=== PATIENT | male | born 1970 | race Caucasian/White ===

== ENCOUNTER 2019-08-21 05:56 | Inpatient (IN) ==
--- NOTE | 2019-08-02 13:07 | PAT Medication Instructions ---
Medication Instructions Date of Service August 02, 2019 Home Medications acetaminophen [Tylenol Extra Strength] 500 mg PO TID dapagliflozin [Farxiga] 10 mg PO QAM dulaglutide [Trulicity] 1.5 mg SUBCUT WK lisinopril 20 mg PO QAM metformin 1,000 mg PO BID multivitamin 1 tab PO QAM simvastatin 40 mg PO PM Continue as directed dulaglutide [Trulicity] 1.5 mg SUBCUT WK DO NOT take the morning of surgery dapagliflozin [Farxiga] 10 mg PO QAM lisinopril 20 mg PO QAM metformin 1,000 mg PO BID multivitamin 1 tab PO QAM Take morning of surgery With a small sip of water, OTHERWISE NOTHING TO EAT OR DRINK AFTER MIDNIGHT: acetaminophen [Tylenol Extra Strength] 500 mg PO TID (okay to take up to 4 hours prior to surgery if needed) Take evening before surgery acetaminophen [Tylenol Extra Strength] 500 mg PO TID metformin 1,000 mg PO BID simvastatin 40 mg PO PM Other Notes If you have any questions please call us at [phone] or [phone] or [phone] or [phone]
--- NOTE | 2019-08-03 10:38 | Anesthesiology Consultation ---
Date of Service August 03, 2019 Assessment & Plan (1) Encounter for pre-operative examination: - Check BSG AM DOS Chart Review Chart Review: Acceptable Risk for Surgery and Patient seen in Pre Admission Testing Teaching & Discussion Pre-Anesthesia Teaching/Discussion Notes: Instructed NPO after midnight before surgery,except medications with 15 cc of water. Medication instructions provided according to the PAT guidelines. History Surgery Operation Date: 08/21/19 07:45 Proposed Procedures p L5-S1 Transforaminal Lumbar Interbody Fusion with Spinal Cord Monitoring - Gilmar Shaw DO Height/Weight Height: 5 ft 8.75 in Weight: 93.3 kg Allergies Allergy/AdvReac Type Severity Reaction Status Date / Time No Known Allergies Allergy Verified 07/28/19 11:21 Medications Home Medications Medication Instructions Recorded Confirmed Last Taken acetaminophen [Tylenol Extra 500 mg PO TID 07/28/19 07/28/19 Unknown Strength] dapagliflozin [Farxiga] 10 mg PO QAM 07/28/19 07/28/19 Unknown dulaglutide [Trulicity] 1.5 mg SUBCUT WK 07/28/19 07/28/19 Unknown lisinopril 20 mg PO QAM 07/28/19 07/28/19 Unknown metformin 1,000 mg PO BID 07/28/19 07/28/19 Unknown multivitamin 1 tab PO QAM 07/28/19 07/28/19 Unknown simvastatin 40 mg PO PM 07/28/19 07/28/19 Unknown Past Medical History Medical History Diabetes mellitus, type 2 NIDDM (oral + injectable) History of GI bleed post-op bleeding after previous polypectomy/no transfusion needed Osteoarthritis Exercise / Class Metabolic Activity II 4-5 Yardwork/Stairs/Walk up hill Past Family History Family History Brother Family history of diabetes mellitus Sister Family history of diabetes mellitus Father Family history of diabetes mellitus Other No family history of adverse response to anesthesia Past Surgical History Surgical History History of arthroscopy of right knee History of cholecystectomy History of colonoscopy History of elbow surgery History of tooth extraction Past Anesthesia History No Hx of Anesthesia Complications and No Family Hx of Anesthesia Complications History of PONV No Hx of PONV and No Hx of Motion Sickness Social History Smoking Status: Never smoker Do You Dip or Chew Tobacco: No Hx Alcohol Use: Yes alcohol intake frequency: holidays/special occasions only Hx Substance Use: No substance use type: does not use Review of Systems Rare reflux. Patient denies chest pain, shortness of breath, dyspnea on exertion, cough, wheezing, palpitations. Physical Exam Vital Signs VITALS BP 114/78 P 77 TEMP 98.6 SP02 98%RA RESP 18 PHYSICAL Full neck and c-spine range of motion. Full TMJ range of motion. TMD 3.5 finger breaths Mallampati Score 2 Dentition: missing molars Lungs: clear throughout to auscultation Cardiac: regular rate and rhythm, no murmurs noted Spine: normal Carotid arteries: negative bruit Extremities: no edema Testing Laboratory Results 08/03/19 11:00 08/03/19 11:00 PT 10.3 Seconds (9.0-12.0) 08/03/19 11:00 INR 1.0 (0.9-1.1) 08/03/19 11:00 APTT 25.1 Seconds (21.0-31.0) 08/03/19 11:00 Hemoglobin A1c 6.1 % (4.5-5.6) H 08/03/19 11:00 Urine Color Yellow 08/03/19 Unknown Urine Appearance Clear (Clear) 08/03/19 Unknown Urine pH 5.5 (4.5-7.5) 08/03/19 Unknown Ur Specific [place] 1.026 (1.000-1.030) 08/03/19 Unknown Urine Protein Negative (Negative) 08/03/19 Unknown Urine Glucose (UA) 3+ (Negative) H 08/03/19 Unknown Urine Ketones 1+ (Negative) H 08/03/19 Unknown Urine Nitrite Negative (Negative) 08/03/19 Unknown Ur Leukocyte Esterase Negative (Negative) 08/03/19 Unknown Blood Type A Negative 08/03/19 11:00 Antibody Screen NEGATIVE 08/03/19 11:00 Electrocardiogram Date: 08/03/19 NSR at 70bpm. Rightward axis. *unconfirmed report* Chest X-Ray Date: 08/03/19 Findings: + NAD
--- NOTE | 2019-08-03 11:17 | XRay Report ---
XR chest Pre-admission PA/Lat CLINICAL HISTORY: pat preoperative evaluation COMPARISON STUDY: No previous studies for comparison. FINDINGS: The bones soft tissues and hemidiaphragms are normal. The cardiomediastinal silhouette is n ormal. The lungs are clear. The pulmonary vasculature is normal. IMPRESSION: Negative chest. ACT 112: Negative or not required by law. The above report was generated using voice recognition software. It may contain grammatical, syntax or spelling errors. Electronically signed by: Abel Raman M.D. 08/03/2019 11:16 AM
[2019-08-03 13:14] LABS: Basophils # (auto) 0.01 K/uL (0-0.2); Basophils % (auto) 0.2 %; Eosinophils % (auto) 2.2 %; Hematocrit (blood only) 46.1 % (42-52); Hemoglobin 16.6 g/dL (14.0-18.0); Immature Granulocytes # (auto) 0.02 K/uL (0.00-0.02); Immature Granulocytes % (auto) 0.4 %; Lymphocytes # (auto) 1.19 K/uL (1.2-3.4); Lymphocytes % (auto) 25.8 %; Mean Corpuscular Volume 80.6 fL (80-100); Mean Platelet Volume 10.5 fL (7.4-10.4); Monocytes % (auto) 10.8 %; Neutrophils % (auto) 60.6 %; Platelet Count 150 K/uL (130-400); Red Blood Count 5.72 M/uL (4.7-6.1); White Blood Count 4.62 K/uL (4.8-10.8)
[2019-08-03 13:16] LABS: Estimated Average Glucose 128 mg/dl; Hemoglobin A1C 6.1 % (4.5-5.6)
[2019-08-03 13:16] LABS: Appearance Urine Clear (Clear); Bilirubin Urine Negative (Negative); Blood Urine Negative (Negative); Color Urine Yellow; Glucose Urine UA 3+ (Negative); Ketones Urine 1+ (Negative); Leukocyte Esterase Urine Negative (Negative); Nitrite Urine Negative (Negative); Protein Urine Negative (Negative); Specific Gravity Urine 1.026 (1.000-1.030); Urobilinogen Urine Negative (Negative); pH Urine 5.5 (4.5-7.5)
[2019-08-03 13:24] LABS: BUN Creatinine Ratio 22.4 (10-20); Calcium 9.7 mg/dl (8.5-10.1); Creatinine Clr Calc Pharmacy 111.5 ml/min; Est GFR (African American) 115.6; Est GFR (Non-African American) 99.7
[2019-08-03 13:33] LABS: Partial Thromboplastin Ratio 0.9; Partial Thromboplastin Time 25.1 Seconds (21.0-31.0); Prothrombin Time 10.3 Seconds (9.0-12.0)
--- NOTE | 2019-08-04 05:54 | Electrocardiogram Report ---
Test Reason : Blood Pressure : / mmHG Vent. Rate : 070 BPM Atrial Rate : 070 BPM P-R Int : 182 ms QRS Dur : 084 ms QT Int : 396 ms P-R-T Axes : 069 102 056 degrees QTc Int : 427 ms Normal sinus rhythm Rightward axis Borderline ECG No previous ECGs available Confirmed by Enrico Nuñez ([id number]) on 08/04/2019 5:53:58 AM Referred By: Gilmar Shaw Confirmed By:Enrico Nuñez
[2019-08-21] MEDS ORDERED: ACETAMINOPHEN 500 MG TAB PO SCH (06:00)
[2019-08-21] MEDS ORDERED: CEFAZOLIN 2000MG 2,000 MG/15 ML SYR IV SCH (06:00)
[2019-08-21] MEDS ORDERED: GABAPENTIN 900 MG DOSE PO SCH (06:00)
[2019-08-21] MEDS ORDERED: CeleBREX 200 MG CAP PO SCH (06:00)
[2019-08-21] MEDS ORDERED: LR 15ML/HR IV SCH (06:00)
[2019-08-21] MEDS ORDERED: MIDAZOLAM HCL 1 MG/ML 2ML VIAL ONE (06:48)
[2019-08-21] MEDS ORDERED: fentaNYL citrate 100 MCG/2 ML VIAL ONE (06:49)
[2019-08-21] MEDS ORDERED: HYDROmorphone INJ 2 MG/ML SYR/VIAL IV PRN (07:12)
[2019-08-21] MEDS ORDERED: PROMETHAZINE HCL 6.25 MG in SODIUM CHLORIDE 0.9% 50 ML IV PRN (07:12)
[2019-08-21] MEDS ORDERED: ePHEDrine sulfate 50 MG/ML AMP IV PRN (07:12)
[2019-08-21] MEDS ORDERED: ATROPINE SULFATE 0.1 MG/ML 10ML SYR IV PRN (07:12)
[2019-08-21] MEDS ORDERED: fentaNYL citrate 100 MCG/2 ML VIAL IV PRN (07:12)
[2019-08-21] MEDS ORDERED: ONDANSETRON INJ 2 MG/ML 2 ML VIAL IV PRN ×2 (07:12→10:59)
[2019-08-21] MEDS ORDERED: BACITRACIN INJ 50,000 UNIT VIAL ONE (07:19)
[2019-08-21] MEDS ORDERED: BUPIVACAINE/EPINEPHRINE 0.5% MPF 1:200,000 10 ML VIAL ONE (07:20)
--- NOTE | 2019-08-21 07:33 | History & Physical Bridge Note ---
Date of Service August 21, 2019 History & Physical Bridge Note I have examined the patient, reviewed the History & Physical and in the interval since the performance of the History & Physical I have noted the following changes of clinical significance: no changes noted
--- NOTE | 2019-08-21 07:34 | History & Physical Report ---
Date of Service August 21, 2019 Assessment & Plan (1) Spinal stenosis of lumbar region with radiculopathy: L5-S1 transforaminal lumbar interbody fusion Present on Admission?: Yes History of Present Illness Chief Complaint: Back and leg pain Primary Care Provider: Jonel Cruz This is a 48-year-old male who presents with chronic persistent back and leg pain after failing extensive course of nonoperative care is here for surgical intervention. Allergies Allergy/AdvReac Type Severity Reaction Status Date / Time No Known Allergies Allergy Verified 08/21/19 06:49 Home Medications Home Medications Medication Instructions Recorded Confirmed Type acetaminophen [Tylenol Extra 500 mg PO TID 07/28/19 08/21/19 History Strength] dapagliflozin [Farxiga] 10 mg PO QAM 07/28/19 08/21/19 History dulaglutide [Trulicity] 1.5 mg SUBCUT WK 07/28/19 08/21/19 History lisinopril 20 mg PO QAM 07/28/19 08/21/19 History metformin 1,000 mg PO BID 07/28/19 08/21/19 History multivitamin 1 tab PO QAM 07/28/19 08/21/19 History simvastatin 40 mg PO PM 07/28/19 08/21/19 History Past Med/Surg History Medical History Diabetes mellitus, type 2 NIDDM (oral + injectable) History of GI bleed post-op bleeding after previous polypectomy/no transfusion needed Osteoarthritis Surgical History History of arthroscopy of right knee History of cholecystectomy History of colonoscopy History of elbow surgery History of tooth extraction Family History Brother Family history of diabetes mellitus Sister Family history of diabetes mellitus Father Family history of diabetes mellitus Other No family history of adverse response to anesthesia Social History Preferred Language: Scottish Communication Ability: Effective Trial Examiner Required: No Beliefs That Will Affect Care: None Current Living Situation: Spouse Other Information That Helps Us Care for You: No Feels Safe at Home: Yes Safety Concerns: Feels Safe At This Time Smoking Status: Never smoker Do You Dip or Chew Tobacco: No ; Second Hand Exposure: No ; Hx Alcohol Use: Yes Hx Substance Use: No Physical Exam Physical Exam: Patient is alert and oriented neurologically intact. Results & Data Vital Signs (Past 12 Hours) Vital Signs Temp Pulse Resp BP Pulse Ox 08/21/19 06:30 36.4 C L 69 20 140/95 97
[2019-08-21] MEDS ORDERED: HYDROmorphone INJ 2 MG/ML SYR/VIAL ONE (08:02)
[2019-08-21] MEDS ORDERED: LIDOCAINE HCL 2% 2 ML VIAL/AMP(20MG/ML) INFIL ONE (08:21)
[2019-08-21] MEDS ORDERED: GLYCOPYRROLATE 0.2 MG/ML VIAL ONE (08:21)
[2019-08-21] MEDS ORDERED: ROCURONIUM BROMIDE 10 MG/ML 5 ML VIAL ONE (08:21)
[2019-08-21] MEDS ORDERED: PROPOFOL IV EMULSION 10 MG/ML 20 ML VIAL IV ONE (08:21)
[2019-08-21] MEDS ORDERED: NEOSTIGMINE METHYLSULFATE 1 MG/ML 10ML VIAL ONE (08:21)
[2019-08-21] MEDS ORDERED: PHENYLEPHRINE 100MCG/ML 5ML SYR ONE (08:21)
[2019-08-21] MEDS ORDERED: DEXAMETHASONE SOD INJ 4 MG/ML VIAL ONE (08:21)
[2019-08-21] MEDS ORDERED: ONDANSETRON INJ 2 MG/ML 2 ML VIAL ONE (08:21)
[2019-08-21] MEDS ORDERED: LARYING-O-JET KIT (LTA) ONE (08:21)
--- NOTE | 2019-08-21 09:50 | Operative Report ---
Post Operative Report Pre & Post Diagnosis Operation Date: 08/21/19 07:45 Pre-Op Diagnosis: LUMBAR SPINAL STENOSIS W/NEUROGENIC CLAUDICATION Post-Op Diagnosis: LUMBAR SPINAL STENOSIS W/NEUROGENIC CLAUDICATION I identified the patient and participated in the time-out.: Yes Procedure Operation Date: 08/21/19 07:45 Actual Procedures #1 lumbar decompression with bilateral medial facetectomies foraminotomies L5- S1. #2 posterior spinal fusion L5-S1. #3 placement posterior instrumentation L5-S1. #4 interbody fusion L5-S1. #5 placement of titanium cage 14 x 26 mm L5- S1 per #6 placement of locally harvested morselized autograft posterior gutters per #7 placement infuse collagen sponge master graft in the posterior lateral gutters and ostial amp and interbody space. Surgeon Gilmar Shaw, Cad Designer Drafter None Estimated Blood Loss 350 Findings Consistent with Post-Op Diagnosis Specimens None Indications Patient is a 48-year-old male that presents with back and chronic leg pain after failing extensive course of nonoperative care he is here for surgical invention. Description of Procedure Patient was met with identified informed consent obtained. Patient was then taken to the operative suite underwent an patient placed in a prone position the Kameron table on top of the Rc frame. All bony prominences well-padded eyes inspected to ensure no external pressure placed upon the. This point the lumbar spine was prepped and draped in normal sterile fashion. Sharp dissection with the assistance of Bovie cautery performed down to and exposing the lamina and transverse processes of L5 and sacral ala bilaterally. From caudal to cephalad fashion complete laminectomy of L5 including bilateral medial facetectomies foraminotomies performed addressing severe spinal stenosis and notable marked facet hypertrophy on the left. After complete decompression pedicle screw was placed in L5 and S1 levels bilaterally with assistance of fluoroscopy and the proper sized barrera placed. By way of a trans-foraminal approach on the left complete discectomy was performed endplates curetted to subcortical bleeding bone and a 14 x 26 mm titanium cage filled with osteo-amp bone graft tapped in position. The rods were then compressed locked into final position bilaterally. The transverse processes of L5 and the sacral ala bur to subcortical bleeding bone. Infuse collagen sponge master graft and local autograft placed in the posterior lateral gutters. 15 round ADILENE drain inserted. The incision was then closed with 1 Vicryl in the fascia 2-0 Vicryl subcutaneously and 4 Monocryl for final skin closure. Steri-Strip sterile dressings placed. Patient will continue to PACU stable addition. Please note spinal cord monitoring was utilized that the procedure no changes noted. I attest to the content of the Intraoperative Record and any orders documented therein. Any exceptions are noted below.
--- NOTE | 2019-08-21 10:35 | Anesthesiology Progress Note ---
Date of Service August 21, 2019 Anesthesia Post Procedure Vital Signs Vital Signs: Temp Pulse Pulse Resp BP Pulse Ox 08/21/19 10:25 36.4 C L 82 16 130/64 99 08/21/19 10:15 75 16 140/60 96 08/21/19 10:05 71 16 145/86 H 99 08/21/19 09:59 36.0 C L 82 16 145/85 H 98 08/21/19 06:30 36.4 C L 69 20 140/95 97 Pain Intensity Left Leg: Pain Intensity: 3 Lower Medial Back: Pain Intensity: 4 Transfer of Care Handoff Completed per policy Notes Mental Status: alert / awake / arousable Patient Amnestic to Procedure: Yes Nausea / Vomiting: adequately controlled Pain: adequately controlled Airway Patency, RR, SpO2: stable & adequate BP & HR: stable & adequate Hydration State: stable & adequate Anesthetic Complications: no major complications apparent Notes: ~1mm abrasion noted on L upper lip, likely some minor trauma at intubation or extubation. Patient says he "doesn't even feel it"
[2019-08-21] MEDS ORDERED: LORazepam 0.5 MG TAB PO PRN (10:59)
[2019-08-21] MEDS ORDERED: DO NOT ADMINISTER FLU VACCINE PRN (10:59)
[2019-08-21] MEDS ORDERED: ACETAMINOPHEN 1,000 MG/100 ML VIAL IV PRN (10:59)
[2019-08-21] MEDS ORDERED: ONDANSETRON 4 MG OD TAB PO PRN (10:59)
[2019-08-21] MEDS ORDERED: bisacodyL 10 MG SUPP PR PRN (10:59)
[2019-08-21] MEDS ORDERED: SOD PHOSPHATE/SOD BIPHOSPHATE ENEMA 132 ML BTL PR PRN (10:59)
[2019-08-21] MEDS ORDERED: PROMETHAZINE HCL 12.5 MG in SODIUM CHLORIDE 0.9% 50 ML IV PRN (10:59)
[2019-08-21] MEDS ORDERED: NALOXONE HCL 0.4 MG/1 ML VIAL/CARP IV PRN (10:59)
[2019-08-21] MEDS ORDERED: HYDROmorphone INJ 0.5 MG/0.5 ML SYR IV PRN (10:59)
[2019-08-21] MEDS ORDERED: MAGNESIUM HYDROXIDE SUSP 30 ML UDC PO PRN (10:59)
[2019-08-21] MEDS ORDERED: HYDROmorphone INJ 1 MG/ML SYRINGE IV PRN (10:59)
[2019-08-21] MEDS ORDERED: METOCLOPRAMIDE HCL INJ 5 MG/ML 2 ML VIAL IV PRN (10:59)
[2019-08-21] MEDS ORDERED: DO NOT ADMINISTER PNEUMOCOCCAL VACCINE PRN (10:59)
[2019-08-21] MEDS ORDERED: FAMOTIDINE 20 MG TAB PO PRN (10:59)
[2019-08-21] MEDS ORDERED: ACETAMINOPHEN 500 MG TAB PO PRN (10:59)
[2019-08-21] MEDS ORDERED: ALUMINUM/MAGNESIUM SUSP 30 ML UDC PO PRN (10:59)
[2019-08-21] MEDS ORDERED: LORazepam 0.5 MG/1 ML VIAL IV PRN (10:59)
--- NOTE | 2019-08-21 11:04 | Fluoroscopy Report ---
FL lumbar spine 2-3V CLINICAL HISTORY: L5-S1 TRANSFORAMINAL LUMBAR INTERBODY COMPARISON STUDY: None FLUOROSCOPY TIME: 21 seconds. NUMBER OF FLUOROSCOPIC IMAGES: 2 FINDINGS: 2 intraoperative fluoroscopic spot images reveal postsurgical changes at L5-S1 discectomies interbody fusion with posterior pedicle screw fixation. IMPRESSION: Postsurgical changes of an L5-S1 spinal decompression and fusion. ACT 112: Negative or not required by law. Electronically signed by: Prem Mondragon M.D. 08/21/2019 11:03 AM
[2019-08-21] MEDS: SODIUM CHLORIDE 0.9% 1000ML 1,000 ML IV SCH ×2 (11:29→22:13)
[2019-08-21] MEDS: KETOROLAC 30 MG/ML VIAL IV SCH ×3 (11:29→23:27)
[2019-08-21] MEDS: CEFAZOLIN 2000MG 2,000 MG/15 ML SYR IV SCH ×2 (17:03→23:27)
[2019-08-21] MEDS: DOCUSATE SODIUM/SENNA 50/8.6MG TAB PO SCH (22:15)
[2019-08-21] MEDS: SIMVASTATIN 40 MG TAB PO SCH (22:15)
[2019-08-21] MEDS: OXYCODONE HCL IR 5 MG TAB (IMMEDIATE RELEASE) PO PRN (22:19)
[2019-08-22 05:26] LABS: Basophils # (auto) 0.01 K/uL (0-0.2); Basophils % (auto) 0.1 %; Eosinophils # (auto) 0.03 K/uL (0-0.5); Eosinophils % (auto) 0.3 %; Hematocrit (blood only) 35.7 % (42-52); Hemoglobin 12.9 g/dL (14.0-18.0); Immature Granulocytes # (auto) 0.01 K/uL (0.00-0.02); Immature Granulocytes % (auto) 0.1 %; Lymphocytes # (auto) 1.12 K/uL (1.2-3.4); Lymphocytes % (auto) 12.1 %; Mean Corpuscular Hemoglobin 28.3 pg (25-34); Mean Corpuscular Hgb Conc 36.1 g/dL (32-36); Mean Corpuscular Volume 78.3 fL (80-100); Mean Platelet Volume 10.5 fL (7.4-10.4); Monocytes # (auto) 0.73 K/uL (0.11-0.59); Monocytes % (auto) 7.9 %; Neutrophils # (auto) 7.36 K/uL (1.4-6.5); Neutrophils % (auto) 79.5 %; Platelet Count 136 K/uL (130-400); RDW Coefficient of Variation 14.5 % (11.5-14.5); RDW Standard Deviation 41.1 fL (36.4-46.3); Red Blood Count 4.56 M/uL (4.7-6.1); White Blood Count 9.26 K/uL (4.8-10.8)
[2019-08-22] MEDS: KETOROLAC 30 MG/ML VIAL IV SCH (05:31)
[2019-08-22] MEDS: POLYETHYLENE (MIRALAX) 17 GM PACK PO SCH ×4 (05:31→23:50)
[2019-08-22 05:53] LABS: BUN Creatinine Ratio 19.3 (10-20); Calcium 8.4 mg/dl (8.5-10.1); Est GFR (African American) 118.3; Est GFR (Non-African American) 102.1
--- NOTE | 2019-08-22 07:47 | Anesthesiology Progress Note ---
Date of Service August 22, 2019 Anesthesia Post Procedure Vital Signs Vital Signs: Temp Pulse Pulse Pulse Resp BP BP 08/22/19 03:30 36.6 C 88 16 117/67 08/21/19 23:35 36.6 C 65 18 119/72 08/21/19 20:19 37.0 C 71 16 115/74 08/21/19 15:13 36.6 C 82 16 119/75 08/21/19 13:40 100 H 16 124/77 08/21/19 12:41 94 H 16 147/97 H 08/21/19 11:44 86 16 151/77 H 08/21/19 11:18 83 16 132/82 08/21/19 10:45 36.9 C 81 16 147/89 H 08/21/19 10:25 36.4 C L 82 16 130/64 08/21/19 10:15 75 16 140/60 08/21/19 10:05 71 16 145/86 H 08/21/19 09:59 36.0 C L 82 16 145/85 H Pulse Ox 08/22/19 03:30 97 08/21/19 23:35 97 08/21/19 20:19 98 08/21/19 15:13 97 08/21/19 13:40 98 08/21/19 12:41 96 08/21/19 11:44 95 08/21/19 11:18 96 08/21/19 10:45 96 08/21/19 10:25 99 08/21/19 10:15 96 08/21/19 10:05 99 08/21/19 09:59 98 Pain Intensity Left Leg: Pain Intensity: 3 Lower Medial Back: Pain Intensity: 5 Notes Mental Status: alert / awake / arousable and participated in evaluation Patient Amnestic to Procedure: Yes Nausea / Vomiting: adequately controlled Pain: adequately controlled Airway Patency, RR, SpO2: stable & adequate BP & HR: stable & adequate Hydration State: stable & adequate Anesthetic Complications: no major complications apparent and Pt Satisfied with anesthetic care
[2019-08-22] MEDS: MULTIVITAMIN TAB PO SCH (08:26)
[2019-08-22] MEDS: lisinopriL 20 MG TAB PO SCH (08:26)
[2019-08-22] MEDS: FARXIGA 10 MG PO SCH (08:27)
[2019-08-22] MEDS ORDERED: NON-FORMULARY MEDICATION (Dapagliflozin [Farxiga] 10 MG) PO SCH (09:00)
[2019-08-22] MEDS: TRAMADOL HCL 50 MG TABLET PO PRN ×2 (10:50→18:42)
--- NOTE | 2019-08-22 16:14 | Orthopedic Progress Note ---
Date of Service August 22, 2019 Assessment & Plan (1) Spinal stenosis of lumbar region with radiculopathy: This time we will continue physical therapy monitor ADILENE output hopefully discharge home in the next few days. Present on Admission?: Yes Admission and Anticipated Discharge Date Admission Date: August 21, 2019 Subjective Back pain controlled leg symptoms improved. Physical Exam Physical Exam: Patient is good strength testing appears comfortable. Results & Data ([facility]) Vital Signs (Past 12 Hours) Vital Signs Temp Pulse Resp BP BP Pulse Ox 08/22/19 15:00 37.4 C 74 16 115/70 99 08/22/19 11:14 97 08/22/19 08:25 123/78 08/22/19 07:55 36.7 C 71 16 117/77 99
[2019-08-22] MEDS: DOCUSATE SODIUM/SENNA 50/8.6MG TAB PO SCH (20:31)
[2019-08-22] MEDS: SIMVASTATIN 40 MG TAB PO SCH (20:31)
[2019-08-22] MEDS: OXYCODONE HCL IR 5 MG TAB (IMMEDIATE RELEASE) PO PRN (22:28)
[2019-08-23] MEDS: POLYETHYLENE (MIRALAX) 17 GM PACK PO SCH ×2 (05:27→12:44)
[2019-08-23] MEDS: FARXIGA 10 MG PO SCH (08:20)
[2019-08-23] MEDS: TRAMADOL HCL 50 MG TABLET PO PRN (08:20)
[2019-08-23] MEDS: MULTIVITAMIN TAB PO SCH (08:20)
[2019-08-23] MEDS: lisinopriL 20 MG TAB PO SCH (08:21)
--- NOTE | 2019-08-23 13:39 | Discharge Summary ---
Date of Service August 23, 2019 Admission HPI Per Admitting Provider This is a 48-year-old male who presents with chronic persistent back and leg pain after failing extensive course of nonoperative care is here for surgical intervention. Principal Diagnosis Lumbar spinal stenosis with neurogenic claudication Discharge Data Allergies Allergy/AdvReac Type Severity Reaction Status Date / Time No Known Allergies Allergy Verified 08/21/19 06:49 Consultations 08/21/19 10:59 Consult Case Management - Discharge Planning Routine Procedures Performed Operation Date: 08/21/19 07:45 Actual Procedures p L5-S1 Transforaminal Lumbar Interbody Fusion, Application of Bone Infuse and Allograft, With Spinal Cord Monitoring - Gilmar Shaw DO Ordered Studies 08/21/19 07:45 FL fluoroscopy <1hr Routine FL lumbar spine 2-3V Routine Hospital Course (1) Spinal stenosis of lumbar region with radiculopathy: Patient went lumbar decompression fusion tolerated well second orthopedic for postoperative. Postop day 1 he was up and ambulating. Leg pain improved. He progressed to postop day #2. ADILENE drain decreasing probably. Excellent strength testing. Subsequent discharge home. Discharge orders and instructions were on the chart for further review. Total Time Total Time Spent Total Time Spent (In Minutes): 20 minutes Discharge Plan Discharge Items Patient Disposition: Home - Self-Care Reason For Visit: LUMBAR SPINAL STENOSIS W/NEUROGENIC CLAUDICATION Discharge Diagnosis: Lumbar spinal stenosis with neurogenic claudication Activity: As commented below Non-emergency contact: Primary Care Provider Call non-emergency contact if: you have any medication questions Follow-up/Referrals: Jonel Cruz [Primary Care Provider] - Diet: Regular Addtl Attending Provider Instructions: ACTIVITY RECOMMENDATIONS: SELF CARE INSTRUCTIONS AFTER THORACIC/LUMBAR FUSIONS 1. You may walk to your tolerance. It is good exercise for your legs and back. Expect some back and intermittent leg aches and pains. 2. You may perform "counter-top" level activities (make a sandwich, ela with a project, etc.). 3. No bending or lifting of more than 10 pounds or back twisting of any nature (roll like a log when turning in bed). 4. You may ride in a car for 20-30 minutes at a time. No driving until after your first visit with your doctor. 5. Frequent changes of position and restricting sitting to 30 minutes at a time will help limit the amount of back spasms and stiffness you may experience. 6. You may discontinue the use of ambulatory aids (cane, crutches, etc.) once your strength and confidence allow. 7. You may shield installer the shower and let water strike your incision when you arrive home at least once daily. Do not take a tub bath, sit in a hot tub or go into a swimming pool until after your first recheck in the office. SPECIAL CARE INSTRUCTIONS: VERY IMPORTANT TO READ AND REVIEW A. Your surgical incision has been closed with a cosmetic suture under the skin that will dissolve in about 6 weeks. In 14 days, you can use a pair of clean scissors and cut the suture that is left outside of the skin at the ends of your incision. 1. The small skin tapes can be removed 7 days after surgery if they have not fallen off by that point. 2. You may keep the wound open to air as much as possible to promote healing after post-op day number 5 unless told otherwise by your doctor. 3. If you think the wound looks like it is becoming infected (redness or worsening drainage) and/or you are experiencing fever, chill or worsening back pain and muscle spasms, contact the office so that we may evaluate you as soon as possible. B. Complications are uncommon, but please contact us if you have any signs or symptoms of: 1. wound infection (fever higher than 102.5 degrees F, redness, separation of wound, drainage, or increasing pain from the incision) 2. blood clots in legs (pain, swelling, redness and warmth in legs) 3. urinary tract infection (fever higher than 102.5 degrees F, burning upon urination or increased frequency of urination) 4. nerve problems (inability to walk on your toes or heels, numbness, loss of bowel or bladder control) 5. any other symptoms that concern you C. Please call the office at if you have any concerns or questions about your operation or recovery. D. No smoking! Smoking drastically decreases the chance of a solid fusion. E. Do not take any anti-inflammatory medications (Indocin, Advil, Motrin, Aspirin, Naprosyn, etc.) as these may inhibit the chance of a solid fusion. Tylenol is okay to take for pain. MANAGING PAIN AFTER SPINAL SURGERY 1. Narcotic medication is intended for short-term use and will be provided for surgical pain. Surgical pain usually lasts for a period of 4-6 weeks. Narcotic medication includes Percocet, Vicodin, Darvocet, Tylenol #3 or Lortab. 2. Longer-term pain is more appropriately treated with non-narcotic medication such as Tylenol ES. 3. Muscle spasm is not appropriately treated with narcotics. Muscle relaxers such as Soma, Flexeril or Skelaxin can be used along with Tylenol ES. 4. Remember that we all live with some "aches and pains". This is not unusual or uncommon after an injury or as we get older. a. Back pain is expected and may include muscle spasms for 4 to 6 weeks after surgery. The pain should gradually improve. If the pain worsens for no apparent reason, please contact the office. b. Intermittent leg pain may also be experienced and should not be concerned about unless it worsens for no apparent reason. If so, please contact the office. 5. We will provide appropriate medication within the normal guidelines of their prescribed use. We will also be very cautious and aware of potential abuse and extended duration of patients' medication needs. a. Pain medications are for your comfort and to assist with sleep and rest so that the tissue can heal. They are not provided in order to return to normal activity and should not be used through the day. To do so or worsening pain at night can result from ongoing tissue damage and development of tolerance to the prescribed medicine. 6. Please allow 2-3 days to process refills. Prescriptions will not be mailed but must be picked up at the office. FOLLOW UP VISIT: Keep your scheduled follow-up appointment. Any questions, please call the office at . Pending Studies at Discharge: No Stand-Alone Forms: My [facility] [employer], Opioid Pain Management, Smoking Cessation Medications and DC Order Prescriptions: New tramadol 50 mg tablet 50 mg PO Q6H PRN (Reason: pain, moderate) Qty: 30 RF: 0 oxycodone 5 mg tablet 5 mg PO Q6H PRN (Reason: pain, severe) Qty: 30 RF: 0 Continued multivitamin Tablet 1 tab PO QAM RF: 0 lisinopril 20 mg Tablet 20 mg PO QAM RF: 0 acetaminophen [Tylenol Extra Strength] 500 mg Tablet 500 mg PO TID RF: 0 simvastatin 40 mg Tablet 40 mg PO PM RF: 0 metformin 1,000 mg Tablet 1,000 mg PO BID RF: 0 Farxiga 10 mg Tablet 10 mg PO QAM RF: 0 Trulicity 1.5 mg/0.5 mL Pen Injector 1.5 mg SUBCUT WK RF: 0 Discharge Orders: Discharge Order (Routine); Ordered 08/23/19 Ordered By: Gilmar Rose/Other Patient Handouts: DVT Prevent Admission Data Admit Date/Time: 08/21/19 10:02 Attending Provider: Gilmar Shaw Admit Provider: Gilmar Shaw Primary Care Provider: Jonel Cruz Other Interventions: Discharge Summary Assessment (RN) Last Done: 08/23/19 12:08
== END 2019-08-23 14:21 | disposition home or self-care (01) | DRG 455 ==
LOC: ASU 05:56 → 3E 10:02